=== PATIENT | female | born 1975 | race Caucasian/White ===

== ENCOUNTER 2016-04-24 12:47 | Emergency (ER) | payer OTHER ==
[~2016-04-24] VITALS: Ht 172.7 cm; Wt 120.9 kg
[2016-04-24 12:52] VITALS: TEMP 37; Ht 172.7 cm; Wt 120.9 kg
--- NOTE | 2016-04-24 13:58 | EMERGENCY ROOM VISIT NOTE ---
History First contact with patient: 13:26 Chief Complaint: BACK PAIN Stated Complaint: LOWER BACK PAIN INTO R LEG AND HIP/GROIN AREA History of Present Illness The patient is a 40 year old female who presents to the Emergency Room via private vehicle accompanied by mother with complaints of "lower back pain into right leg and hip/groin area". Patient states that earlier today she was putting bags in her car and when she twisted she developed pain in the right lower back/hip/groin region. She states this was around 5:30 AM. She then states that she drove to work from [employer] to [employer] in the drive was very painful. She stated that every position hurt. She felt that she had spasms in her musculature in the low back while sitting. She states this was unlike any previous muscle injury. She has not taken any medications. She also believes that she had an odd menstrual cycle this month, and is concerned that she may be . Patient states that she does not have any history of major back or hip injuries. She denies any lower extremity weakness, bowel or bladder incontinence, or numbness or tingling in her genital region. She rates her overall pain as a 6/10. Review of Systems A complete 6-point Review of Systems was discussed with the patient, with pertinent positives and negatives listed in the History of Present Illness. All remaining Review of Systems questions can be considered negative unless otherwise specified. Past Medical/Surgical History Asthma, bronchitis, surgery to the tear duct, ears, tonsils, lumpectomy, PCOS Family History Diabetes, heart disease, cancer, lung disease, seizures. Social History Smoking Status: Current Every Day Smoker Social History: Patient lives at home with , she admits tobacco use but denies alcohol use. She does smoke 1 pack per day. Current/Historical Medications Scheduled PRN Cyclobenzaprine Hcl (Flexeril), 10 MG PO TID PRN for Muscle Spasms Oxycodone Ir (Roxicodone Ir), 1-2 TAB PO Q4H PRN for Pain Allergies Coded Allergies: Sulfa Antibiotics (Unverified Adverse Reaction, Intermediate, HIVES, ) Physical Exam Vital Signs Date Time Temp Pulse Resp B/P Pulse Ox O2 Delivery O2 Flow Rate FiO2 04/24/16 17:23 69 18 116/71 98 04/24/16 15:39 73 16 122/64 97 04/24/16 12:52 37.0 95 20 120/77 98 Room Air Physical Exam VITAL SIGNS - Vital signs and nursing notes were reviewed. Patient is afebrile , she is normotensive, she is not tachycardic and is saturating well on room air at 98%. GENERAL 40-year-old female appearing her stated age who is in no acute distress. She is nontoxic in appearance. Communicates well with provider and answers questions appropriately. SKIN - Without rashes. No petechial rashes. HEAD - NC/AT. EYES - Sclera anicteric. Palpebral conjunctiva pink and moist with no injection noted. EARS - No deformities of external structures noted on gross examination bilaterally. NOSE - Midline and without cyanosis. No epistaxis or purulent drainage noted. MOUTH/OROPHARYNX - Without perioral cyanosis. NECK - Neck with FROM. No meningeal signs. LUNGS - Chest wall symmetric without accessory muscle use, intercostals retractions, or central cyanosis. Normal vesicular breath sounds CTA B/L. No wheezes, rales, or rhonchi appreciated. CARDIAC - RRR with S1/S2. No murmur, rubs, or gallops appreciated. ABDOMEN - Abdominal contour without pulsations or visible masses. BS normoactive all four quadrants. No tenderness, palpable masses, hepatosplenomegaly, or ascites noted. MUSCULOSKELETAL: There is tenderness to palpation overlying the musculature of the right gluteal region. No bony tenderness. EXTREMITIES - No clubbing or peripheral cyanosis. No pretibial edema present. Negative straight leg raise. Straight leg raise of the right elicits pain to the lumbar/right hip region. Patient is vascularly intact. +5/5 strength noted in UE/LE bilaterally. NEUROLOGIC - Cranial nerves II through XII grossly intact. Sensory intact to light touch throughout. Patellar reflexes +2/4. Medical Decision & Procedures ER Provider Diagnostic Interpretation: L-SPINE MIN 4 VIEWS ROUTINE CLINICAL HISTORY: Low back pain with right leg radiculopathy. COMPARISON STUDY: No previous studies for comparison. FINDINGS: There are 5 lumbar type vertebral bodies present. There are degenerative changes most pronounced at the L1-2 and L2-3 levels. No acute fractures or subluxations are visualized. No destructive lesions are evident. IMPRESSION: Mild degenerative change. No fractures, subluxations, or destructive lesions are visualized. Electronically signed by: Anthony Ventura M.D. 04/24/2016 4:16 PM Dictated Date/Time: 04/24/2016 4:15 PM Laboratory Results Test 04/24/16 14:20 04/24/16 14:26 Human Chorionic Gonadotropin, Qual NEG (NEG) Human Chorionic Gonadotropin, Quant < 1 mIU/mL Medications Administered Medications (Trade) Dose Ordered Sig/Shayy Route Start Time Stop Time Status Last Admin Dose Admin Ketorolac Tromethamine (Toradol Inj) 30 mg NOW STAT IV 04/24/16 15:21 04/24/16 15:22 DC 04/24/16 15:38 30 MG Medical Decision Patient was seen and evaluated as above. After obtaining a thorough history and physical examination the patient requested to be blood tested for prior to x-ray and medication administration. Lab collection was initiated and a qualitative and quantitative hCG as well as urine were ordered. All 3 were negative. Toradol 60 mg IM was provided to the patient. L-spine series obtained. Negative for acute process. Patient was reevaluated and noted to be feeling slightly better. She did want to drive home. I did provide her with a short-term prescription of OxyIR as well as Flexeril. I do believe the patient has a strain of the right lumbar musculature that occurred today as she was placing bags in her car. I do not suspect any other underlying emergent process. She was educated to follow up with her family doctor. She had questions answered prior to discharge, was educated upon management of these findings, seemed happy with plan of care and was discharged home in good condition. In evaluation and treatment of this patient the following differential diagnoses were entertained: Fracture of the spine, muscular skeletal strain, sprain, among others. Patient was specifically instructed to not take the Flexeril and oxycodone together. [place] Drug Monitoring Program Search Results: patient reviewed within database, no issues identified Impression Primary Impression: Back strain Departure Information Dispostion Home / Self-Care Condition GOOD Prescriptions Cyclobenzaprine Hcl (FLEXERIL) 10 Mg Tab 10 MG PO TID Y for Muscle Spasms for 5 Days, #15 TAB Prov: Antonio Porter PA-C 04/24/16 Oxycodone Ir (Roxicodone Ir) 5 Mg Tab 1-2 TAB PO Q4H Y for Pain, #15 TAB For Initial Treatment Prov: Antonio Porter PA-C 04/24/16 Patient Instructions [facility] Additional Instructions You have been treated in the Emergency Department for Back Pain. You have been prescribed Oxy IR to be used for pain control. This is a narcotic medication. You cannot drive or consume alcohol while on this medicine. This medicine should only be used for pain that cannot be controlled with over-the- counter pain medicines. You have been prescribed Flexeril (cyclobenzaprine) 1 tabs orally, three times per day. Do NOT exceed 30 mg (6 tabs) per day. Take your first dose at bedtime as it can make you drowsy. Always take all medications as prescribed. As we discussed please be very cautious using the oxycodone and Flexeril together. For pain control, you can use the following [id number] medicines (if >12 yo): - Regular strength (325mg/tab) Tylenol (acetaminophen) 2 tabs every 4-6 hours as needed. Do not exceed 12 tablets in a 24 hour period. Avoid taking more than 4 grams (4000 mg) of Tylenol per day. This includes any other sources of acetaminophen you may take on a regular basis. - Regular strength (200 mg/tab) Advil (ibuprofen) 1-2 tabs every 4-6 hours as needed. Do not exceed a dose of 3200 mg per day. If this is an acute injury, ice can be applied to the area of pain for the first 3 days to help decrease pain and inflammation. After the first 3 days, a heating pad can be used over the area for continued soothing relief. You should schedule a follow-up appointment in 2-3 days with your Primary Care Provider for further evaluation and treatment of your back pain. Return to the Emergency Department if your current symptoms worsen despite treatment course outlined above, or if you develop any of the following symptoms : intractable pain despite aforementioned treatment course, loss of control of your bowel or bladder, numbness or tingling in your groin, genital numbness, or development of a fever. Problem Qualifiers Primary Impression: Back strain Encounter type: initial encounter Qualified Codes: S39.012A - Strain of muscle, fascia and tendon of lower back, initial encounter
[2016-04-24 14:54] LABS: PREG INTERNAL NEGATIVE QC NEG CLEAR BACKGROUND; PREG INTERNAL POSITIVE QC POS CONTROL LINE
[2016-04-24] MEDS ORDERED: KETOROLAC TROMETHAMINE 30 MG/ML VIAL IV STA (15:21)
--- NOTE | 2016-04-24 16:17 | DIAGNOSTIC IMAGING REPORT ---
L-SPINE MIN 4 VIEWS ROUTINE CLINICAL HISTORY: Low back pain with right leg radiculopathy. COMPARISON STUDY: No previous studies for comparison. FINDINGS: There are 5 lumbar type vertebral bodies present. There are degenerative changes most pronounced at the L1-2 and L2-3 levels. No acute fractures or subluxations are visualized. No destructive lesions are evident. IMPRESSION: Mild degenerative change. No fractures, subluxations, or destructive lesions are visualized. Electronically signed by: Anthony Ventura M.D. 04/24/2016 4:16 PM Dictated Date/Time: 04/24/2016 4:15 PM
[2016-04-24] MEDS ORDERED: OXYC1TAB3 PO (17:07)
[2016-04-24] MEDS ORDERED: CYCL10TA6 PO (17:07)
[2016-04-24 17:23] VITALS: BP 116/71; PULSE 69; O2SAT 98
== END 2016-04-24 17:24 | disposition home or self-care (01) ==
LOC: C.EDB 12:50 → C.EDD 17:24
DX: S39.012A Strain of muscle, fascia and tendon of lower back, initial encounter (principal); X58.XXXA Exposure to other specified factors, initial encounter; J45.909 Unspecified asthma, uncomplicated; F17.200 Nicotine dependence, unspecified, uncomplicated; Z98.890 Other specified postprocedural states; Z88.2 Allergy status to sulfonamides; Z83.3 Family history of diabetes mellitus; Z82.49 Family history of ischemic heart disease and other diseases of the circulatory system; Z80.9 Family history of malignant neoplasm, unspecified; Z82.0 Family history of epilepsy and other diseases of the nervous system